=== PATIENT | male | born 1950 | race Two or more races ===

== ENCOUNTER 2018-10-07 10:00 | Inpatient (IN) | payer OTHER ==
[~2018-10-07] VITALS: Ht 160 cm; Wt 79.8 kg
[2018-10-07] MEDS ORDERED: TENORMIN25 MG PO (12:43)
[2018-10-07] MEDS ORDERED: PLAVIX75 MG PO (12:43)
[2018-10-07] MEDS ORDERED: LEVO-T50 MCG PO (12:44)
[2018-10-07] MEDS ORDERED: LISINOPRIL5 MG PO (12:44)
[2018-10-07] MEDS ORDERED: PLAVIX75 MG (13:24)
[2018-10-07] MEDS ORDERED: DARIFENACIN ER15 MG (13:24)
[2018-10-07] MEDS ORDERED: MONTELUKAST SOD10 MG (13:25)
[2018-10-07] MEDS ORDERED: TERAZOSIN HCL2 M1 (13:25)
[2018-10-07] MEDS ORDERED: LATANOPROST2.5 ML (13:25)
[2018-10-18] MEDS ORDERED: INTESTINEX680 M1 PO (15:12)
[2018-10-18] MEDS ORDERED: PERCOCET 5-3251 EACH PO (15:12)
== END 2018-10-18 16:26 | disposition home or self-care (01) | DRG 333 ==
LOC: SURG 10:00 → O/R 10-14 05:42 → SURH 10-14 05:42 → SURG 10-14 09:15 → SURH 10-14 13:25
PROVIDERS: ADMIT Surgery
PROC: 0DJD8ZZ Inspection of Lower Intestinal Tract, Via Natural or Artificial Opening Endoscopic (ICD-10-PCS; 2018-10-14)
PROC: 3E0F7GC Introduction of Other Therapeutic Substance into Respiratory Tract, Via Natural or Artificial Opening (ICD-10-PCS; 2018-10-14)
PROC: 4A033R1 Measurement of Arterial Saturation, Peripheral, Percutaneous Approach (ICD-10-PCS; 2018-10-14)
PROC: 4A12X4Z Monitoring of Cardiac Electrical Activity, External Approach (ICD-10-PCS; 2018-10-14)
PROC: 0DTP4ZZ Resection of Rectum, Percutaneous Endoscopic Approach (ICD-10-PCS; principal; 2018-10-14 09:15)
DX: K57.32 Diverticulitis of large intestine without perforation or abscess without bleeding (principal); J45.22 Mild intermittent asthma with status asthmaticus; I11.9 Hypertensive heart disease without heart failure; E03.8 Other specified hypothyroidism; I25.10 Atherosclerotic heart disease of native coronary artery without angina pectoris; G47.33 Obstructive sleep apnea (adult) (pediatric); Z88.6 Allergy status to analgesic agent

== ENCOUNTER 2020-03-21 06:00 | Day surgery (SDC) | payer OTHER ==
[~2020-03-21 06:00] MED LIST: DARIFENACIN ER15 MG; INTESTINEX680 M1 PO; LATANOPROST2.5 ML; LEVO-T50 MCG PO; LISINOPRIL5 MG PO; MONTELUKAST SOD10 MG; PERCOCET 5-3251 EACH PO; PLAVIX75 MG; PLAVIX75 MG PO; TENORMIN25 MG PO; TERAZOSIN HCL2 M1
== END 2020-03-21 10:45 | disposition home or self-care (01) ==
LOC: AMB-ENDOS 06:00
PROVIDERS: ATTEND Surgery
DX: D12.2 Benign neoplasm of ascending colon (principal); Z20.828 Contact with and (suspected) exposure to other viral communicable diseases